=== PATIENT | female | born 1955 | race Two or more races ===

== ENCOUNTER → 2018-01-04 | Outpatient (CLI) | payer OTHER ==
[~2018-01-04] VITALS: Ht 149.9 cm; Wt 54.4 kg
== END | disposition home or self-care (01) ==
LOC: OFIC 805 08:10
DX: H91.8X3 Other specified hearing loss, bilateral (principal); H61.21 Impacted cerumen, right ear

== ENCOUNTER 2018-03-14 11:15 | Outpatient (CLI) | payer OTHER ==
[~2018-03-14] VITALS: Ht 121.9 cm; Wt 59.0 kg
== END 2018-03-14 11:30 | disposition home or self-care (01) ==
LOC: OFIC 805 11:15
DX: H90.3 Sensorineural hearing loss, bilateral (principal); R04.2 Hemoptysis

== ENCOUNTER 2018-04-04 10:39 | Outpatient (CLI) | payer OTHER | END 2018-04-04 10:59 | disposition home or self-care (01) | LOC: TOM 10:39 | DX: R91.1 Solitary pulmonary nodule (principal) ==

== ENCOUNTER 2018-07-13 09:34 | Outpatient (CLI) | payer OTHER | END 2018-07-13 09:45 | disposition home or self-care (01) | LOC: MAMO-SONO 09:34 | DX: Z12.31 Encounter for screening mammogram for malignant neoplasm of breast (principal) ==

== ENCOUNTER → 2018-11-21 | Outpatient (CLI) | payer OTHER | END | disposition home or self-care (01) | LOC: NUCLEAR 11:46 | DX: M81.0 Age-related osteoporosis without current pathological fracture (principal) ==

== ENCOUNTER 2020-09-30 11:22 | Outpatient (CLI) | payer OTHER | END 2020-09-30 11:29 | disposition home or self-care (01) | LOC: NUCLEAR 11:22 | DX: M81.8 Other osteoporosis without current pathological fracture (principal) ==

== ENCOUNTER 2021-04-11 09:06 | Outpatient (CLI) | payer OTHER | END 2021-04-11 09:09 | disposition home or self-care (01) | LOC: MAMO-SONO 09:06 | PROVIDERS: ATTEND Obstetrics & Gynecology | DX: N64.59 Other signs and symptoms in breast (principal); Z12.31 Encounter for screening mammogram for malignant neoplasm of breast; Z87.898 Personal history of other specified conditions ==

== ENCOUNTER 2022-02-18 09:35 | Outpatient (CLI) | payer OTHER | END 2022-02-18 09:40 | disposition home or self-care (01) | LOC: SONOGRAMA 09:35 | PROVIDERS: ATTEND Internal Medicine | DX: E03.9 Hypothyroidism, unspecified (principal) ==

== ENCOUNTER 2022-04-15 10:18 | Outpatient (CLI) | payer OTHER | END 2022-04-15 10:19 | disposition home or self-care (01) | LOC: MAMO-SONO 10:18 | PROVIDERS: ATTEND Internal Medicine | DX: Z12.31 Encounter for screening mammogram for malignant neoplasm of breast (principal) ==

== ENCOUNTER 2023-01-12 13:54 | Outpatient (CLI) | payer OTHER | END 2023-01-12 13:55 | disposition home or self-care (01) | LOC: NUCLEAR 13:54 | DX: M81.0 Age-related osteoporosis without current pathological fracture (principal) ==

== ENCOUNTER 2023-04-20 11:03 | Outpatient (CLI) | payer OTHER | END 2023-04-20 11:06 | disposition home or self-care (01) | LOC: SONOGRAMA 11:03 | PROVIDERS: ATTEND Otolaryngology | DX: R22.1 Localized swelling, mass and lump, neck (principal) ==

== ENCOUNTER 2024-05-08 11:59 | Outpatient (CLI) | payer OTHER | END 2024-05-08 12:00 | disposition home or self-care (01) | LOC: RAD 11:59 | PROVIDERS: ATTEND Podiatrist Foot Surgery | DX: M20.41 Other hammer toe(s) (acquired), right foot (principal); M20.42 Other hammer toe(s) (acquired), left foot ==

== ENCOUNTER → 2024-06-27 | Outpatient (CLI) | payer OTHER | END | disposition home or self-care (01) | LOC: RAD 10:57 | PROVIDERS: ATTEND Physical Medicine & Rehabilitation | DX: M17.11 Unilateral primary osteoarthritis, right knee (principal); M17.12 Unilateral primary osteoarthritis, left knee; M54.2 Cervicalgia ==

== ENCOUNTER 2025-01-16 10:54 | Outpatient (CLI) | payer OTHER | END 2025-01-16 10:58 | disposition home or self-care (01) | LOC: RAD 10:54 | PROVIDERS: ATTEND Podiatrist Foot Surgery | DX: M20.41 Other hammer toe(s) (acquired), right foot (principal); M20.42 Other hammer toe(s) (acquired), left foot; M84.478A Pathological fracture, left toe(s), initial encounter for fracture ==

== ENCOUNTER → 2025-01-29 | Outpatient (CLI) | payer OTHER | END | disposition home or self-care (01) | LOC: MAMO-SONO 11:31 | PROVIDERS: ATTEND Internal Medicine | DX: R92.1 Mammographic calcification found on diagnostic imaging of breast (principal); Z12.31 Encounter for screening mammogram for malignant neoplasm of breast ==

== ENCOUNTER 2025-05-09 11:06 | Outpatient (CLI) | payer OTHER | END 2025-05-09 11:08 | disposition home or self-care (01) | LOC: RAD 11:06 | PROVIDERS: ATTEND Internal Medicine Pulmonary Disease | DX: J45.41 Moderate persistent asthma with (acute) exacerbation (principal) ==

== ENCOUNTER 2025-07-09 15:23 | Emergency (ER) | payer OTHER ==
[~2025-07-09] VITALS: Ht 152.4 cm; Wt 59.0 kg
[2025-07-09] MEDS ORDERED: AMLODIPINE-OLM1 EAC2 (16:01)
[2025-07-09] MEDS ORDERED: PROLIA60 MG/1 ML (16:01)
[2025-07-09] MEDS ORDERED: TRANDOLAPRIL2 MG (16:01)
[2025-07-09] MEDS ORDERED: SINGULAIR4 MG (16:01)
[2025-07-09] MEDS ORDERED: ARAVA10 MG (16:01)
[2025-07-09] MEDS ORDERED: ONDANSETRON HCL 2 MG/ML VIAL IV ONE (17:45)
[2025-07-09] MEDS ORDERED: LACTOBACILLUS ACIDOPHILUS 1 CAP CAP PO ONE ×2 (17:45→18:05)
[2025-07-09] MEDS ORDERED: GUAIFENESIN/DEXTROMETHORPHAN 100MG/10ML BLIST.PACK PO ONE ×2 (17:45→18:04)
[2025-07-09] MEDS ORDERED: ONDANSETRON HCL 2 MG/ML VIAL ONE (18:04)
[2025-07-09 19:08] LABS: EOS # 0.23 (0.04-0.54); EOS % 4.4 % (0.7-7.0); LYMPH # 0.82 (1.18-3.74); LYMPH % 15.8 % (19.3-53.1); MEAN PLATELET VOLUME 8.90 fl (9.4-12.4); MONO # 0.62 (0.24-0.82); MONO % 11.9 % (4.7-12.5); NEUT # 3.36 (1.56-6.13); NEUT % 64.8 % (34.0-71.1); RED CELL DISTRIBUTION WIDTH 13.3 % (11.6-14.4)
[2025-07-09 19:19] LABS: BASO % 2.3 % (0.1-1.2)
[2025-07-09 19:35] LABS: ALT/SGPT 26.0 U/L (12-78); AST/SGOT 33.0 U/L (15-37); BILIRUBIN TOTAL 0.38 mg/dL (0.3-1.2); BUN CREA RATIO 8.0 (7.0-25.0); CREATININE SERUM 0.5 mg/dL (0.55-1.02); GFR 121.62; GLOBULINA 4.1 G/DL (2.4-3.5); GLUCOSE FASTING 96.0 mg/dL (65-100); OSMOLALITY SERUM 263.0 MOSM/KG (275-295)
[2025-07-09 19:48] LABS: COVID-19 AG NEGATIVE (NEGATIVE)
[2025-07-09] MEDS ORDERED: INTESTINEX680 M1 PO (20:44)
[2025-07-09] MEDS ORDERED: TUSSIN DM LIQU118 ML PO (20:44)
[2025-07-09] MEDS ORDERED: PEPCID AC20 MG PO (20:44)
== END 2025-07-09 21:13 ==
LOC: ER 15:23
PROVIDERS: General Practice
DX: B34.9 Viral infection, unspecified (principal); R05.9 Cough, unspecified; R53.81 Other malaise; Z20.822 Contact with and (suspected) exposure to COVID-19; I10 Essential (primary) hypertension
CPT/HCPCS: 36415; 71046; 96365; 99283; J2405